=== PATIENT | female | born 1990 | race Two or more races ===

== ENCOUNTER 2018-10-02 16:15 | Inpatient (IN) | payer OTHER ==
[~2018-10-02] VITALS: Ht 147.3 cm; Wt 62.1 kg
[2018-10-02] MEDS ORDERED: PRENATAL TABLE1 EACH PO (17:09)
== END 2018-10-05 11:43 | disposition home or self-care (01) | DRG 807 ==
LOC: LDR 16:15 → OB/GYN 16:15
PROVIDERS: ADMIT Obstetrics & Gynecology
PROC: 10E0XZZ Delivery of Products of Conception, External Approach (ICD-10-PCS; principal; 2018-10-03)
PROC: 3E0P7VZ Introduction of Hormone into Female Reproductive, Via Natural or Artificial Opening (ICD-10-PCS; 2018-10-03)
PROC: 3E033VJ Introduction of Other Hormone into Peripheral Vein, Percutaneous Approach (ICD-10-PCS; 2018-10-03)
PROC: 4A1HXCZ Monitoring of Products of Conception, Cardiac Rate, External Approach (ICD-10-PCS; 2018-10-03)
DX: O80 Encounter for full-term uncomplicated delivery (principal); Z37.0 Single live birth; Z3A.38 38 weeks gestation of pregnancy

== ENCOUNTER 2021-04-28 06:16 | Emergency (ER) | payer OTHER ==
[~2021-04-28] VITALS: Ht 149.9 cm; Wt 52.6 kg
[~2021-04-28 06:16] MED LIST: PRENATAL TABLE1 EACH PO
[2021-04-28] MEDS ORDERED: IMODIUM A-D2 M2 (06:32)
[2021-04-28] MEDS ORDERED: GAVISCON 80-141 EACH (06:32)
== END 2021-04-28 17:42 | disposition home or self-care (01) ==
LOC: ER 06:16
DX: I88.0 Nonspecific mesenteric lymphadenitis (principal); N39.0 Urinary tract infection, site not specified